=== PATIENT | female | born 1960 | race Caucasian/White ===

== ENCOUNTER 2018-06-29 05:00 | Day surgery (SDC) | payer MEDICARE, MEDICAID ==
[2018-06-24 10:10] LABS: EOSINOPHILS 2.6 % (0-7); HEMATOCRIT 42.3 % (36.0-48.0); IMMATURE GRANULOCYTES 0.1 % (0-5); LYMPHOCYTES 32.8 % (15-50); MCHC 33.1 g/dL (31.0-37.0); MCV 96.6 fL (80.0-100.0); MEAN PLATELET VOLUME 10.4 fL (7.4-10.4); MONOCYTES 8.8 % (2-11); NEUTROPHILS 54.7 % (40-80); PLATELET COUNT 249 10x3/uL (130-400); RBC 4.38 10x6/uL (4.00-5.40); RDW 12.6 % (11.5-14.5); WBC 7.3 10x3/uL (4.8-10.8)
[2018-06-24 10:21] LABS: ANION GAP 9.9 mmol/L (8-16); CALCIUM 8.7 mg/dL (8.5-10.1); CARBON DIOXIDE 28.5 mmol/L (21.0-32.0); CREATININE - SERUM 1.1 mg/dL (0.6-1.3); POTASSIUM - SERUM 4.4 mmol/L (3.5-5.1)
[~2018-06-29] VITALS: Ht 157.5 cm; Wt 85.3 kg
[~2018-06-29 05:00] MED LIST: ALDACTONE25 MG PO; BAYER CHEWABLE81 MG PO; CHANTIX 1 MG TAB1 MG PO; COREG6.25 MG PO; EFFEXOR XR150 MG PO; EFFIENT10 MG PO; ISOSORBIDE MONO30 M1 PO; NAPROXEN SODIU550 M1 PO; NEURONTIN600 MG PO; PREVACID30 MG PO; SONATA5 MG PO
[2018-06-29 06:32] VITALS: BP 155/88; Ht 157.5 cm; Wt 85.3 kg
--- NOTE | 2018-06-29 10:22 | NUR ---
0942 RETURNED TO 2514 FROM [address] THERESA CAMPOS ON, SPOUSE AT SIDE.
--- NOTE | 2018-06-29 10:23 | NUR ---
0955 IN DIET SERVED 1009 NORCO 7.5MG PO GIVEN FOR C/O PAIN 03/09. DENIES NAUSEA.
== END 2018-06-29 11:25 | disposition home or self-care (01) ==
LOC: D.OPS 05:00 → D.PAN 10:35 → D.OPS 10:45
PROVIDERS: Orthopaedic Surgery
DX: S83.242A Other tear of medial meniscus, current injury, left knee, initial encounter (principal); S83.282A Other tear of lateral meniscus, current injury, left knee, initial encounter; M13.862 Other specified arthritis, left knee; M65.9 Synovitis and tenosynovitis, unspecified; Z01.812 Encounter for preprocedural laboratory examination